=== PATIENT | female | born 1965 | race Two or more races ===

== ENCOUNTER 2023-05-30 10:32 | Emergency (ER) | payer OTHER, SELFPAY ==
--- NOTE | ~2023-05-30 | CT_ITS ---
EXAMINATION: CT HEAD WITHOUT CONTRAST CT CERVICAL SPINE WITHOUT CONTRAST CLINICAL INFORMATION: Left arm tingling. Left arm and leg numbness. COMPARISON: None TECHNIQUE: CT of the head and cervical spine were performed without intravenous contrast. Multiplanar reformats were rendered and reviewed. This CT examination was performed using dose optimization techniques as appropriate, variously including the following: *Automated exposure control *Adjustment of mA and/or kV according to patient size (this includes techniques or standardized protocols for targeted exams where dose is matched to indication/reason for exam; i.e. extremities or head) *Use of iterative reconstruction technique DLP: 1278 mGy-cm. FINDINGS: CT head: There is a 7 mm focus of heterogeneous calcification within the right cerebellum. No surrounding edema is seen. The remainder of the brain parenchyma demonstrates normal attenuation. There is no hemorrhage, mass effect, or territorial infarction. No extra-axial collection is seen. The extra cranial structures are within normal limits. CT cervical spine: The cervical vertebral bodies maintain normal heights and alignment. There is straightening of the normal cervical lordosis. There is moderate disc height loss at C6-C7 with degenerative endplate changes and marginal osteophytes. There is low-attenuation within the C7 vertebral body measuring up to 1.4 cm. No fracture is seen. There is severe degeneration of the left-sided C3-C4 facet with prominent subchondral cystic change and osteophyte formation. At C3-C4 there is severe neural foraminal stenosis in the left related to uncovertebral hypertrophy and facet arthropathy. At C6-C7 there is moderate to severe neural foraminal stenosis bilaterally related to uncovertebral hypertrophy and disc osteophyte complex. The cervical soft tissues are within normal limits. The lung apices are clear. CT/CT cervical spine wo IV con IMPRESSION: CT HEAD: No acute intracranial abnormality. A 7 mm focus of heterogeneous calcification is seen within the right cerebellum. This most likely represents a cavernous malformation. Confirmation is recommended with brain MRI which should be performed without and with contrast. No perilesional edema is seen to suggest recent hemorrhage. No mass effect. CT CERVICAL SPINE: 1. No cervical spine fracture or traumatic malalignment. Moderate degenerative disc disease at C6-C7. Severe degeneration of the left-sided C3-C4 facet. 2. Multilevel degenerative spondylosis without high-grade narrowing the spinal canal. 3. Low-attenuation lesion seen in the C7 vertebral body. This most likely represents a hemangioma and could be further assessed with noncontrast cervical spine MRI which could be performed as an outpatient. Alternatively, if prior exams are available a comparison could be made and an addendum issued.
[2023-05-30 10:37] VITALS: BP 152/92; PULSE 88; RESP 16; TEMP 36.6; O2SAT 99; BMI 46.9
--- NOTE | 2023-05-30 10:44 | ED_ITS ---
HPI - Extremity Problem General Chief complaint: Extremity Problem Stated complaint: numbness from hip down, swollen feet Time Seen by Provider: 05/30/23 10:44 Source: patient Mode of arrival: ambulatory Limitations: no limitations History of Present Illness HPI Narrative: 58 yo Croatian speaking female with history of HTN and arthritis who presents to the ER for evaluation of acute on chronic LLE numbness and tingling along with new onset left upper extremity tingling for the last 3 days. She states she has had left lower leg pain, numbness for months, but worse lately. Her doctor had her get a LE doppler on 05/22 but she does not know the results. 3 days ago the numbness in the lower portion of the leg got worse. She reports some chronic low back pain on the right only. She denies any weakness in the leg. No issues with bowel/bladder incontinence. She reports the left lower arm tingling in new in the last 3 days. She reports some left sided neck pain as well but denies any recent injury. No weakness in the left arm. No speech difficulties or difficulties walking. MD Complaint: extremity pain and other (extremity numbness) Onset (ago): day(s) (3) Pain Consistency: constant Location: left, upper extremity and lower extremity Radiation: distal Relieving factors: nothing Exacerbating factors: nothing Associated symptoms: denies other symptoms Related Data Allergies Allergy/AdvReac Type Severity Reaction Status Date / Time No Known Allergies Allergy Verified 05/30/23 10:36 Review of Systems Review of Systems: Yes all other systems are reviewed and are negative [facility] Social History Social History Advance Directives: No Physical Exam Vital Signs: Vital Signs: Last Vital Signs Temp 97.8 F 05/30/23 10:37 Pulse 88 05/30/23 10:37 Resp 16 05/30/23 10:37 BP 152/92 H 05/30/23 10:37 Pulse Ox 99 05/30/23 10:37 O2 Del Method Room Air 05/30/23 10:37 BMI result Body Mass Index 46.9 Appearance: Alert. Oriented X3. No acute distress. Head: normocephalic, atraumatic. Eyes: Pupils equal, round and reactive to light. ENT: Pharynx normal. No tonsillar swelling or exudate. Neck: Normal inspection. Neck supple Nontender midline spine. soft tissue tenderness on the left side only. CVS: Normal heart rate and rhythm. Pulses normal. Respiratory: No respiratory distress. Breath sounds normal. Abdomen: Soft and nontender. +BS x4 Skin: Skin warm and dry. Normal skin color. Normal skin turgor. No rashes. Extremities: No lower extremity edema. No joint swelling. No calf tenderness on the left. Neuro/psych: Oriented X 3. No motor deficit. +subjective sensory deficit of the left lower leg and left distal arm. CN II-XII intact. Normal speech and cognition. Strength is equal and symmetrical throughout. Steady gait. Medical Decision Making Medical Decision Making MDM Narrative: 58 yo female with history of obesity, HTN, and arthritis presenting with acute on chronic LLE numbness/tingling along with new left lower arm tingling x3 days. Neuro exam with only subjective sensory deficits, no weakness. CT scan of the head and cervical spine were performed. She has cervical DJD which is most likely causing her symptoms in the LUE. There is also a 7mm calcification in the right cerebrellum, likely cavernous malformation. no evidence of acute bleed, edema or stroke. Rad recommending MRI. Case d/w Dr. Murdock. MRI ordered but unable to get done until 7pm or 8pm this evening. Results of the CT scan were discussed with the patient along w/ recommendation for MRI today. She would like to follow up with PCP to arrange outpatient MRI. We discussed importance of close outpatient follow up along w/ return precautions. Comfortable with discharge home, plan for outpatient MRI Differential Diagnosis Differential Diagnoses: The differential diagnosis associated with the presentation includes cervical radiculopathy, sciatica, chronic lumbar radiculopathy, inflammatory arthritis, less likely acute CVA Admission/Observation Consideration of admission/observation: Escalation of care including admission/observation considered Independent Interpretation I performed an independent interpretation of an: CT Scan Interpretation: CT scan without any acute edema or bleed, agree w/ radiology read Radiology Impression Discussion of test interpretation with radiology: I have reviewed the radiologist's reading. Radiologist Impression: EXAMINATION: CT HEAD WITHOUT CONTRAST CT CERVICAL SPINE WITHOUT CONTRAST CLINICAL INFORMATION: Left arm tingling. Left arm and leg numbness. COMPARISON: None TECHNIQUE: CT of the head and cervical spine were performed without intravenous contrast. Multiplanar reformats were rendered and reviewed. This CT examination was performed using dose optimization techniques as appropriate, variously including the following: *Automated exposure control *Adjustment of mA and/or kV according to patient size (this includes techniques or standardized protocols for targeted exams where dose is matched to indication/reason for exam; i.e. extremities or head) *Use of iterative reconstruction technique DLP: 1278 mGy-cm. FINDINGS: CT head: There is a 7 mm focus of heterogeneous calcification within the right cerebellum. No surrounding edema is seen. The remainder of the brain parenchyma demonstrates normal attenuation. There is no hemorrhage, mass effect, or territorial infarction. No extra-axial collection is seen. The extra cranial structures are within normal limits. CT cervical spine: The cervical vertebral bodies maintain normal heights and alignment. There is straightening of the normal cervical lordosis. There is moderate disc height loss at C6-C7 with degenerative endplate changes and marginal osteophytes. There is low-attenuation within the C7 vertebral body measuring up to 1.4 cm. No fracture is seen. There is severe degeneration of the left-sided C3-C4 facet with prominent subchondral cystic change and osteophyte formation. At C3-C4 there is severe neural foraminal stenosis in the left related to uncovertebral hypertrophy and facet arthropathy. At C6-C7 there is moderate to severe neural foraminal stenosis bilaterally related to uncovertebral hypertrophy and disc osteophyte complex. The cervical soft tissues are within normal limits. The lung apices are clear. CT/CT head/brain wo IV con IMPRESSION: CT HEAD: No acute intracranial abnormality. A 7 mm focus of heterogeneous calcification is seen within the right cerebellum. This most likely represents a cavernous malformation. Confirmation is recommended with brain MRI which should be performed without and with contrast. No perilesional edema is seen to suggest recent hemorrhage. No mass effect. CT CERVICAL SPINE: 1. No cervical spine fracture or traumatic malalignment. Moderate degenerative disc disease at C6-C7. Severe degeneration of the left-sided C3-C4 facet. 2. Multilevel degenerative spondylosis without high-grade narrowing the spinal canal. 3. Low-attenuation lesion seen in the C7 vertebral body. This most likely represents a hemangioma and could be further assessed with noncontrast cervical spine MRI which could be performed as an outpatient. Alternatively, if prior exams are available a comparison could be made and an addendum issued. Chronic Conditions Patient?s care impacted by: Hypertension Critical Care Time Critical Care Time Critical Care Time: No Discharge Plan Discharge Clinical Impression: Cervical radiculopathy, Abnormal CT of the head Patient Disposition: Home, Self-Care Instructions: Lumbar Radiculopathy (ED), Cervical Radiculopathy (ED) Additional Instructions: Follow up with your primary care doctor for outpatient MRI of the brain CT/CT head/brain wo IV con IMPRESSION: CT HEAD: No acute intracranial abnormality. A 7 mm focus of heterogeneous calcification is seen within the right cerebellum. This most likely represents a cavernous malformation. Confirmation is recommended with brain MRI which should be performed without and with contrast. No perilesional edema is seen to suggest recent hemorrhage. No mass effect. CT CERVICAL SPINE: 1. No cervical spine fracture or traumatic malalignment. Moderate degenerative disc disease at C6-C7. Severe degeneration of the left-sided C3-C4 facet. 2. Multilevel degenerative spondylosis without high-grade narrowing the spinal canal. 3. Low-attenuation lesion seen in the C7 vertebral body. This most likely represents a hemangioma and could be further assessed with noncontrast cervical spine MRI which could be performed as an outpatient. Alternatively, if prior exams are available a comparison could be made and an addendum issued. Pardeep un seguimiento con nguyen m?dico de atenci?n primaria para saima resonancia magn?augustine del cerebro para pacientes ambulatorios. CT/CT judy/cerebro sin conexi?n IV IMPRESI?N: JUDY DE TC: Sin anomal?a intracraneal aguda. Se observa un foco de calcificaci?n heterog?mamta de 7 mm dentro del cerebelo derecho. Lo m?s probable es que esto represente saima malformaci?n cavernosa. Se recomienda la confirmaci?n con resonancia magn?augustine cerebral que debe realizarse con y sin contraste. No se observa edema perilesional que sugiera hemorragia reciente. Sin efecto de masa. TC DE COLUMNA CERVICAL: 1. Sin fractura de columna cervical ni ludin alineaci?n traum?augustine. Enfermedad degenerativa del disco moderada en C6-C7. Degeneraci?n severa de la faceta C3-C4 del lado shira. 2. Espondilosis degenerativa multinivel sin estrechamiento de alto gerri el canal medrano. 3. Lesi?n de baja atenuaci?n observada en el cuerpo vertebral de C7. Lo m?s probable es que esto represente un hemangioma y podr?a evaluarse m?s detalladamente con saima resonancia magn?augustine de la columna cervical sin contraste que podr?a realizarse de forma ambulatoria. Alternativamente, si hay ex?menes anteriores disponibles, se podr?a hacer saima comparaci?n y emitir saima adenda. Interventions: ED Discharge Assessment Last Done: 05/30/23 13:13 Discharge Date/Time: 05/30/23 13:14
== END 2023-05-30 13:14 | disposition home or self-care (01) ==
PROVIDERS: Emergency Provider Emergency Medicine; PCP Pediatrics
DX: M54.12 Radiculopathy, cervical region (principal); M54.2 Cervicalgia; R60.0 Localized edema; M79.605 Pain in left leg; I10 Essential (primary) hypertension; R20.0 Anesthesia of skin
CPT/HCPCS: 70450; 72125; 99283; 99284